=== PATIENT | male | born 1995 | race Caucasian/White ===

== ENCOUNTER 2025-03-10 06:49 | Observation (INO) ==
--- NOTE | 2025-03-10 07:03 | Emergency Department Note ---
History of Present Illness General Chief complaint: Abdominal Pain Stated complaint: ABDOMINAL PAIN Time Seen by Provider: 03/10/25 07:02 History of Present Illness Maximum Pain Intensity: 9 This is a 29-year-old male with history of GERD and asthma that presents to the emergency department via private vehicle with complaints of "left-sided abdominal pain/back pain". The patient notes sudden onset left-sided flank/abdominal pain beginning around 5 AM today. No trauma. No injury. No associated fevers, chills, nausea or vomiting. No history of similar. No history of stones. No history of diverticulitis. Pain minimally better with certain positions, otherwise no aggravating or alleviating factors. Current pain 11/21. Urine is a bit darker this morning compared to baseline. No anticoagulant use. Pain radiates to left testicle as well. Home Medications Medication Instructions Recorded Confirmed Type omeprazole 20 mg capsule,delayed 20 mg PO DAILY 03/10/25 03/10/25 History release topiramate 25 mg tablet 25 mg PO DAILY 03/10/25 03/10/25 History Past Med/Surg History Problem List (Updated 03/10/25 @ 10:24 by Cosme Toledo PA-C) Acute left flank pain (Acute) Hydronephrosis of left kidney (Acute) Calculus of left ureter (Acute) Medical History Asthma Surgical History (Updated 10/19/21 @ 23:04 by QUENTIN Brower) No pertinent past surgical history Social History Smoking Status: Never smoker Preferred Language: Swiss Feels Safe at Home: Yes Review of Systems A total of 10 systems reviewed and were otherwise negative Physical Exam Vital Signs Vital Signs - 24 hr 03/10/25 06:55 03/10/25 07:53 03/10/25 09:00 Temperature 36.0 C L Temperature Source Temporal Artery Scan Pulse Rate 71 84 82 Pulse Rate from SpO2 Sensor 84 Pulse Rhythm Regular Respiratory Rate 20 20 Respiratory Effort / Characteristics Non-Labored Spontaneous Respiratory Depth Normal Respiratory Pattern Regular Blood Pressure 181/81 H 147/81 H Blood Pressure Mean 114 103 Blood Pressure Position Sitting Pulse Oximetry 95 94 Oxygen Delivery Method Room Air Room Air Sepsis Recent Fever Within 48 Hours No Sepsis New/Unexplained Change in Mental Status No Sepsis Action Taken by Nursing No Action Required 03/10/25 10:46 Temperature Temperature Source Pulse Rate 83 Pulse Rate from SpO2 Sensor Pulse Rhythm Respiratory Rate 20 Respiratory Effort / Characteristics Respiratory Depth Respiratory Pattern Blood Pressure 147/81 H Blood Pressure Mean Blood Pressure Position Pulse Oximetry 98 Oxygen Delivery Method Room Air Sepsis Recent Fever Within 48 Hours Sepsis New/Unexplained Change in Mental Status Sepsis Action Taken by Nursing VITAL SIGNS - Vital signs and nursing notes were reviewed. Hypertensive, otherwise stable and afebrile. GENERAL - 29-year-old male appearing his stated age who is in no acute distress. Communicates well with provider and answers questions appropriately. SKIN - Without rashes. No meningeal or petechial rash HEAD - NC/AT. EYES - PERRL with EOMI bilaterally. Sclera anicteric. NECK - No nuchal rigidity. LUNGS - CTA CARDIAC - RRR ABDOMEN - Abdominal contour normal without pulsations or visible masses. BS normoactive all four quadrants. LLQ abd ttp noted. No palpable masses, hepatosplenomegaly, or ascites noted. EXTREMITIES - No clubbing or peripheral cyanosis. +5/5 strength noted in UE/LE bilaterally. NEUROLOGIC - Cranial nerves II through XII grossly intact. PSYCH -alert, oriented and pleasant on exam Course Administered Medications Discontinued Medications Sodium Chloride (Nss) 1,000 mls @ 999 mls/hr IV .Q1H1M ONE Stop: 03/10/25 09:20 Last Infusion: 03/10/25 09:30 Dose: Infused Documented By: Admin: 03/10/25 08:26 Dose: 999 mls/hr Documented By: KALIN Acetaminophen (Ofirmev) 1,000 mg in 100 mls @ 400 mls/hr IV NOW STA Stop: 03/10/25 09:03 Last Infusion: 03/10/25 09:25 Dose: Infused Documented By: Admin: 03/10/25 08:53 Dose: 400 mls/hr Documented By: KALIN Ioversol (Optiray 320 125ml) 120 ml IV ONCE ONE Stop: 03/10/25 08:07 Last Admin: 03/10/25 08:09 Dose: 120 ml Documented By: SHAHZAD Ketorolac Tromethamine (Ketorolac Tromethamine 15 Mg/Ml Vial) 10 mg IV NOW ONE Stop: 03/10/25 08:11 Last Admin: 03/10/25 08:20 Dose: 10 mg Documented By: TDM Morphine Sulfate (Morphine Sulfate 4 Mg/Ml 1 Ml Carp\\Vial) 4 mg IV NOW STA Stop: 03/10/25 07:14 Last Admin: 03/10/25 07:22 Dose: 4 mg Documented By: TDM Morphine Sulfate (Morphine Sulfate 4 Mg/Ml 1 Ml Carp\\Vial) 4 mg IV NOW STA Stop: 03/10/25 08:11 Last Admin: 03/10/25 08:20 Dose: 4 mg Documented By: TDM Ondansetron HCl (Ondansetron Inj 2 Mg/Ml 2 Ml Vial) 4 mg IV NOW STA Stop: 03/10/25 07:14 Last Admin: 03/10/25 07:22 Dose: 4 mg Documented By: TDM Ondansetron HCl (Ondansetron Inj 2 Mg/Ml 2 Ml Vial) 4 mg IV NOW STA Stop: 03/10/25 08:16 Last Admin: 03/10/25 08:20 Dose: 4 mg Documented By: TDM Tamsulosin HCl (Tamsulosin Hcl 0.4 Mg Cap) 0.4 mg PO NOW ONE Stop: 03/10/25 08:50 Last Admin: 03/10/25 08:52 Dose: 0.4 mg Documented By: TDM Medical Decision Making Laboratory Data 03/10/25 07:05 03/10/25 07:05 Lab Results 03/10/25 Range/Units 07:05 WBC 10.26 (4.8-10.8) K/ul RBC 5.37 (4.70-6.10) M/uL Hgb 15.1 (14.0-18.0) g/dL Hct 43.9 (42.0-52.0) % MCV 81.8 (80.0-100.0) fL MCH 28.1 (25.0-34.0) pg MCHC 34.4 (32.0-36.0) g/dL RDW Std Deviation 38.5 (36.4-46.3) fL RDW Coeff of Niranjan 13.2 (11.5-14.5) % Plt Count 274 (130-400) K/uL MPV 8.9 L (9.4-12.4) fL Immature Gran % (Auto) 0.4 % Neut % (Auto) 65.0 % Lymph % (Auto) 23.9 % [place] % (Auto) 8.2 % Eos % (Auto) 1.9 % Baso % (Auto) 0.6 % Neut # (Auto) 6.67 H (1.40-6.50) K/uL Lymph # (Auto) 2.45 (1.20-3.40) K/uL [place] # (Auto) 0.84 H (0.11-0.59) K/uL Eos # (Auto) 0.20 (0.00-0.50) K/uL Baso # (Auto) 0.06 (0.00-0.20) K/uL Immature Gran # (Auto) 0.04 (0.01-0.20) K/uL Sodium 138 (136-145) mmol/L Potassium 3.6 (3.5-5.1) mmol/L Chloride 103 (98-107) mmol/L Carbon Dioxide 26 (21-32) mmol/L Anion Gap 9 (3-11) BUN 17 (6-23) mg/dl Creatinine 0.69 (0.6-1.4) mg/dl Est Cr Clr Drug Dosing 246.4 ml/min eGFR 127.67 BUN/Creatinine Ratio 24.6 H (10-20) Glucose 109 H (70-99(Fasting)) mg/dl Calcium 9.4 (8.6-10.3) mg/dl Total Bilirubin 0.6 (0.2-1.0) mg/dl AST 19 (13-39) U/L ALT 30 (7-52) U/L Alkaline Phosphatase 65 (34-104) U/L Total Protein 7.9 (6.0-8.3) gm/dl Albumin 4.5 (3.4-5.0) gm/dl Globulin 3.4 (2.5-4.0) gm/dl Albumin/Globulin Ratio 1.3 (0.9-2) Urine Color Dark Yellow Urine Appearance Cloudy A (Clear) Urine pH 5.5 (4.5-7.5) Ur Specific [place] 1.037 H (1.000-1.030) Urine Protein 2+ H (Negative) Urine Glucose (UA) Negative (Negative) Urine Ketones Trace H (Negative) Urine Blood 3+ H (Negative) Urine Nitrite Negative (Negative) Urine Bilirubin Negative (Negative) Urine Urobilinogen Negative (Negative) Ur Leukocyte Esterase Trace H (Negative) Urine WBC (Auto) 0-5 (0-5) /hpf Urine RBC (Auto) >20 H (0-2) /hpf U Hyaline Cast (Auto) 0-2 (0-2) /lpf U Epithel Cells (Auto) 3-5 H (0-2) /hpf Urine Bacteria (Auto) None Seen (None Seen) Urine Comment Imaging Data Radiologist's Impression: Abdomen/Pelvis CT 03/10/25 07:[address] WITH IV CONTRAST CT DOSE: 1451.1 mGy.cm HISTORY: L sided abd pain into back region TECHNIQUE: Multiaxial CT images of the abdomen and pelvis were performed following the IV administration of 90 cc of Optiray, A dose lowering technique was utilized adhering to the principles of ALARA. COMPARISON STUDY: None FINDINGS: There is mild fatty liver. There is mild splenomegaly measuring 15 cm. Otherwise the liver, gallbladder, spleen, pancreas, and adrenal glands are unremarkable. No abdominal aortic aneurysm. There is a 6 mm calculus mid left ureter causing minimal left hydronephrosis. No other renal or ureteral calculi seen. No hydronephrosis on the right. Pelvis: Prostate is partially calcified. Urinary bladder is decompressed. Normal appendix. No bowel inflammation or obstruction seen. No free fluid, free air, or abscess. No enlarged adenopathy. Osseous structures: There are mild degenerative changes at the lumbar spine. IMPRESSION: Mid left ureteral calculus causes minimal left hydronephrosis. ACT 112: Negative or not required by law. The above report was generated using voice recognition software. It may contain grammatical, syntax or spelling errors. Electronically signed by: Tucker Enriquez M.D. 03/10/2025 8:40 AM MDM Narrative Patient was seen and evaluated as above in room A09b. Review was performed of nursing notes and vital signs. I did review pertinent previous visits and patient history. After obtaining a thorough history and physical examination the above work up was performed. Patient presents to us today with sudden onset left-sided abdominal pain/back pain. No trauma. No injury. This is associated with darker than usual urine color. Options of care were discussed with the patient. IV access was established. Labs were drawn. There is no leukocytosis or concerning anemia. There is no evidence of kidney or liver failure. Mild hyperglycemia 109. Urinalysis concerning for blood without signs of infection. CT scan results as above. The patient does have a 6 mm left mid ureteral calculus with mild hydro. Patient was medicated here with IV morphine, IV Zofran, IV fluids. Pain initially improved but then returned. IV Toradol, IV Zofran again, IV morphine again, IV acetaminophen, oral tamsulosin. He was reevaluated tremendous improvement. He was observed here and was still doing well. I discussed benefit versus risk of inpatient versus outpatient management. Patient does prefer trialing outpatient management. I will proceed with a course of oral oxycodone, Zofran and Flomax. He will use a urine strainer. He will call urology to arrange follow-up. Certainly he should return here with any worsening and or new/concerning symptoms. While in the department, I personally reevaluated the patient several times. The patient was educated upon management, educated upon todays findings/results, educated upon importance of follow up from today's visit, educated upon symptoms in which to return, had questions answered prior to discharge, verbalized understanding, and while being prepared for discharge, noted pain returned therefore plan will be medical admission. Additional IV analgesics were ordered. Case discussed with the hospitalist service. Please refer to further documentation regarding his stay. 11:05 AMI did call the [facility] to confirm cancellation of the oxycodone, Zofran and Flomax that was sent as the patient initially was prepared for discharge from the ED prior to condition change/ return of pain. In the evaluation and treatment of this patient the following differential diagnoses were entertained: Diverticulitis, kidney stone, testicular torsion, UTI, pyelonephritis, among others. Impression & Plan Calculus of left ureter, Hydronephrosis of left kidney, Acute left flank pain Discharge Plan Visit Data Chief Complaint: Abdominal Pain Stated Complaint: ABDOMINAL PAIN ED Provider: Chris Basurto ED Midlevel Provider: Cosme Toledo Discharge Problem: Calculus of left ureter, Hydronephrosis of left kidney, Acute left flank pain Patient Disposition: Admitted As Inpatient Condition: Good Discharge Instructions Interventions: ED Discharge Assessment Last Done: 03/10/25 10:46 Forms Stand Alone Forms: My [facility], Important Visit Information Prescriptions Prescriptions: No Action topiramate 25 mg tablet 25 mg PO DAILY omeprazole 20 mg capsule,delayed release(/EC) 20 mg PO DAILY Referrals Referrals: Sushant Chavez DO [Physician] - PCP,NO [Primary Care Provider] -
[2025-03-10] MEDS: ONDANSETRON INJ 2 MG/ML 2 ML VIAL IV STA ×2 (07:22→08:20)
[2025-03-10] MEDS: MoRPHine SULFATE 4 MG/ML 1 ML CARP\\VIAL IV STA ×3 (07:22→11:30)
[2025-03-10 07:32] LABS: Hematocrit (blood only) 43.9 % (42.0-52.0); Hemoglobin 15.1 g/dL (14.0-18.0); Immature Granulocytes # (auto) 0.04 K/uL (0.01-0.20); Immature Granulocytes % (auto) 0.4 %; Mean Corpuscular Hemoglobin 28.1 pg (25.0-34.0); Mean Corpuscular Volume 81.8 fL (80.0-100.0); Platelet Count 274 K/uL (130-400); RDW Standard Deviation 38.5 fL (36.4-46.3); Red Blood Count 5.37 M/uL (4.70-6.10); White Blood Count 10.26 K/ul (4.8-10.8)
[2025-03-10 07:52] LABS: Alanine Aminotransferase 30.0 U/L (7-52); Albumin Globulin Ratio 1.3 (0.9-2); Albumin Level 4.5 gm/dl (3.4-5.0); Alkaline Phosphatase 65.0 U/L (34-104); Anion Gap 9.0 (3-11); Bilirubin,Total 0.6 mg/dl (0.2-1.0); Blood Urea Nitrogen 17.0 mg/dl (6-23); Calcium 9.4 mg/dl (8.6-10.3); Carbon Dioxide 26.0 mmol/L (21-32); Chloride 103.0 mmol/L (98-107); Creatinine Clr Calc Pharmacy 246.4 ml/min; Globulin 3.4 gm/dl (2.5-4.0); Glucose 109.0 mg/dl (70-99(Fasting)); Potassium 3.6 mmol/L (3.5-5.1); Sodium 138.0 mmol/L (136-145); Total Protein 7.9 gm/dl (6.0-8.3)
[2025-03-10 08:03] LABS: Appearance Urine Cloudy (Clear); Bacteria Urine Automated None Seen (None Seen); Cast Urine Automated 0-2 /lpf (0-2); Glucose Urine UA Negative (Negative); RBC Urine Automated >20 /hpf (0-2); WBC Urine Automated 0-5 /hpf (0-5)
[2025-03-10] MEDS: OPTIRAY 320 125ml IV ONE (08:09)
[2025-03-10] MEDS: KETOROLAC TROMETHAMINE 15 MG/ML VIAL IV ONE (08:20)
[2025-03-10] MEDS: SODIUM CHLORIDE 0.9% 1,000 ML IV ONE (08:26)
--- NOTE | 2025-03-10 08:42 | CT Scan Report ---
ABDOMEN AND PELVIS CT WITH IV CONTRAST CT DOSE: 1451.1 mGy.cm HISTORY: L sided abd pain into back region TECHNIQUE: Multiaxial CT images of the abdomen and pelvis were performed following the IV administrat ion of 90 cc of Optiray, A dose lowering technique was utilized adhering to the principles of ALARA. COMPARISON STUDY: None FINDINGS: There is mild fatty liver. There is mild splenomegaly measuring 15 cm. Otherwise the liver, gallbladder, spleen, pancreas, and adrenal glands are unremarkable. No abdominal aortic aneurysm. Th ere is a 6 mm calculus mid left ureter causing minimal left hydronephrosis. No other renal or uretera l calculi seen. No hydronephrosis on the right. Pelvis: Prostate is partially calcified. Urinary bladder is decompressed. Normal appendix. No bowel i nflammation or obstruction seen. No free fluid, free air, or abscess. No enlarged adenopathy. Osseous structures: There are mild degenerative changes at the lumbar spine. IMPRESSION: Mid left ureteral calculus causes minimal left hydronephrosis. ACT 112: Negative or not required by law. The above report was generated using voice recognition software. It may contain grammatical, syntax o r spelling errors. Electronically signed by: Tucker Enriquez M.D. 03/10/2025 8:40 AM
[2025-03-10] MEDS: TAMSULOSIN HCL 0.4 MG CAP PO ONE (08:52)
[2025-03-10] MEDS: ACETAMINOPHEN 1,000 MG/100 ML VIAL IV STA (08:53)
--- NOTE | 2025-03-10 11:29 | History & Physical Report ---
Date of Service March 10, 2025 Assessment & Plan (1) Calculus of left ureter: (2) Hydronephrosis of left kidney: (3) Asthma: (4) GERD (gastroesophageal reflux disease): (5) Morbid obesity with BMI of 50.0-59.9, adult: Plan Patient 29-year-old gentleman presents with uncontrollable pain due to left ureteral calculus. Attempted to manage at home, however pain is too severe. Will need hospital level care and intervention. Observed in the MedSurg unit IV fluids Strain urine Pain control Urology consultation Continue outpatient medications as ordered History of Present Illness Chief Complaint: Left flank and back pain Primary Care Provider: NO PCP Patient is a 29-year-old gentleman had acute onset of left flank pain around 5:00 this morning when he got up to go to the bathroom. Pain was so severe he sought medical attention in the emergency room. In the emergency room his a workup revealed a 6 mm left ureteral stone. He was given pain management and fluids. He seemed to improve during his time here in the emergency room. Discussion was had and he chose to try and manage this at home and pursue outpatient urologic evaluation. However as he got up to go home this severe pain reoccurred. Patient was referred to our service for ongoing in-hospital management. Time my evaluation the patient is comfortable again. He denies any fever or chills. No cough or cold symptoms. No chest pain. No shortness of breath. A little bit of nausea with this severe pain. However, he has been eating and drinking well. He states he drinks lots of fluid on a regular basis. No swelling in his hands arms legs or feet. Patient reports never having a history of kidney stones. He has no known family history of kidney stones. Does not smoke or use significant amounts of alcohol. Home Medications Medication Instructions Recorded Confirmed Type omeprazole 20 mg capsule,delayed 20 mg PO DAILY 03/10/25 03/10/25 History release topiramate 25 mg tablet 25 mg PO DAILY 03/10/25 03/10/25 History Past Med/Surg History Problem List (Updated 03/10/25 @ 11:28 by Clifford Bhandari DO) Morbid obesity with BMI of 50.0-59.9, adult GERD (gastroesophageal reflux disease) Acute left flank pain (Acute) Hydronephrosis of left kidney (Acute) Calculus of left ureter (Acute) Medical History Asthma Surgical History (Updated 10/19/21 @ 23:04 by QUENTIN Brower) No pertinent past surgical history Social History Smoking Status: Never smoker Preferred Language: Bruneian Feels Safe at Home: Yes Review of Systems Review of Systems: Pertinent positive and negative review of systems as mentioned in the HPI Physical Exam Physical Exam: Constitutional: Alert, obese, nontoxic HEENT: Mucous membranes moist. Sclera clear Neck: Soft, no adenopathy Lungs: Clear to auscultation, decreased, no wheezes rales or rhonchi CV: S1-S2, regular Abdomen: Soft, nontender, nondistended Extremities: No significant edema Musculoskeletal: No significant joint tenderness Neuro: No focal deficits Psych: Cooperative, normal mood Results & Data Results & Data Vital Signs (Past 12 Hours) Vital Signs Temp Pulse Resp BP Pulse Ox O2 Del Method 03/10/25 10:46 83 20 147/81 H 98 Room Air 03/10/25 09:00 82 20 147/81 H 94 Room Air 03/10/25 07:53 84 03/10/25 06:55 36.0 C L 71 20 181/81 H 95 Room Air Diagnostic Findings Reviewed imaging, laboratory and diagnostic studies. Pertinent findings as below. CBC within normal range Electrolytes within normal range Creatinine 0.69 LFTs within normal range Urinalysis reviewed: 3+ blood, 2+ protein, trace leukocyte esterase, no bacteria seen CT abdomen pelvis report reviewed: 6 mm left ureteral stone with minimal left hydronephrosis Code Status & VTE Plan VTE Prophylaxis Plan VTE Prophylaxis will be ordered: Yes
[2025-03-10] MEDS ORDERED: ONDANSETRON INJ 2 MG/ML 2 ML VIAL IV PRN (12:35)
[2025-03-10] MEDS ORDERED: ALBUTEROL HFA 8 GM INHALER INH PRN (12:35)
[2025-03-10] MEDS ORDERED: ACETAMINOPHEN 325 MG TAB PO PRN (12:35)
[2025-03-10] MEDS ORDERED: ALUMINUM/MAGNESIUM SUSP 30 ML UDC PO PRN (12:35)
[2025-03-10] MEDS ORDERED: MoRPHine SULFATE 10 MG/ML CARP/VIAL IV PRN (12:35)
[2025-03-10 13:15] VITALS: O2SAT 94
--- NOTE | 2025-03-10 13:38 | Urology Consultation ---
Date of Consultation March 10, 2025 Assessment & Plan (1) Hydronephrosis of left kidney: (2) Calculus of left ureter: (3) Acute left flank pain: (4) Morbid obesity with BMI of 50.0-59.9, adult: Plan Patient with left mid ureteral stone found secondary to severe pain and di scomfort. Patient is currently being admitted by the hospitalist team for observation and management of pain control. Patient independently assessed, examined, interviewed, and evaluated. Patient's vitals and labs were all reviewed. Pertinent values in the HPI and plan section. Hemoglobin 15.1. White count 10.26. Creatinine 0.69. Vitals include blood pressure 164/102. Pulse 90 respirations 22 temperature 36.4 and oxygen saturation 94% on room air. Imaging was reviewed interpreted by myself. Left mid ureteral stone with hydronephrosis. Otherwise agree with read. Vitals were reviewed. Discussed findings extensively with patient and family. Reviewed with nurse practitioner as well as consulting physicians/team. Patient is on Topamax. Patient's complicated medical and surgical history was reviewed and summarized above. Patient's surgical, medical, social, and family history were all reviewed with pertinent values as above. Discussed patient's current diagnosis as well as concerns and issues. Reviewed different options moving forward. Discussed potential risks and benefits as well as possible options and concerns. Reviewed potential surgical options and interventions. Discussed potential issues and concerns related to intervention. Risk and benefits were discussed extensively with patient and any available family. Discussed potential risks related to anesthesia. Discussed risks of bleeding infection and injury. Discussed options for conservative measure and maximum expulsion medical therapy and symptom controlled. Discussed ESWL. Discussed Ureteroscopy with extraction and/or laser lithotripsy. Risks and benefits were discussed. Stone free rates were also discussed as well as possibility of multiple procedures. Ureteral stents were discussed as well as post-operative issues and pain management. All questions were answered. Plan for maximal expulsion therapy. Discussed supportive care. Discussed hydration and attempted passage. Reviewed options for pain control including utilization of tamsulosin, pain medication, and aggressive hydration. Reviewed options moving forward. Will plan to observe patient. If changes or major issues developing of severe GLORIA fever or intractable pain or nausea and vomiting we will plan to possibly move forward with intervention. Otherwise we will plan for possible spontaneous passage and observation. No known family history. Patient's complicated medical and surgical history is reviewed and summarized above all imaging was reviewed all labs were reviewed and vitals. Pertinent positive negatives in the HPI or plan section. History of Present Illness Attending Physician: Clifford Bhandari DO History of Present Illness New consultation for patient with stone, discomfort, obstruction, and ill feelings. Patient presented with new stone. Has no known history of stone disease. Found to have left mid ureteral stone. Was admitted to the hospitalist team secondary to pain control and bother. Patient developed sudden onset of pain into flank going down and radiating into groin and back in waves comes and goes. Can be severe at times. Discussed and reviewed patient's family history for any history of stone disease. No known family history. Also, discussed patient's medical surgery history especially related to any history of urinary issues or stone disease. Patient was admitted and is undergoing observation. Home Medications Medication Instructions Recorded Confirmed Type omeprazole 20 mg capsule,delayed 20 mg PO DAILY 03/10/25 03/10/25 History release topiramate 25 mg tablet 25 mg PO DAILY 03/10/25 03/10/25 History Patient History Medical History Asthma Surgical History No pertinent past surgical history Social History Smoking Status: Never smoker Preferred Language: Guinean Feels Safe at Home: Yes Review of Systems Review of Systems: All systems reviewed & are unremarkable except as noted in HPI & below Physical Exam Physical Exam: General: Alert and oriented x 3 in no acute distress. Morbid obesity. Patient is well nourished and well kept. HEENT: Normocephalic Atraumatic. Inspection normal. Cranial Nerves 2-12 Grossly intact. Nares are clear. Neck is supple. Normal inspection of face. Normal inspection of neck. Neurologic: No deficits on inspection. Baseline for motor function and sensory. Psychologic: Normal affect. Respiratory: Nonlabored. No use of accessory muscles. No tachypnea or dyspnea. Cardiovascular: No tachycardia Skin: [place] and Dry. No rashes or visible lesions. Extremities: Moving without issues. No motor deficits on inspection Lymphatics: No edema Abdomen: Soft Non-distended. Obese. No rebound or guarding. Results & Data Vital Signs (Past 12 Hours) Vital Signs Temp Pulse Pulse Resp BP BP BP 03/10/25 13:14 36.4 C L 90 22 164/102 H 159/94 H 03/10/25 12:00 94 H 19 173/93 H 03/10/25 10:46 83 20 147/81 H 03/10/25 09:00 82 20 147/81 H 03/10/25 07:53 84 03/10/25 06:55 36.0 C L 71 20 181/81 H Pulse Ox O2 Del Method 03/10/25 13:14 94 Room Air 03/10/25 12:00 92 Room Air 03/10/25 10:46 98 Room Air 03/10/25 09:00 94 Room Air 03/10/25 07:53 03/10/25 06:55 95 Room Air PG Care Time/CCT Total # of Minutes Spent Total Time Spent with Patient: Total time spent is greater than 50% in coordination of care (as documented) at patient's floor/unit and/or counseling patient: Coding Level of Care Code 86676 OFFICE CONSULT LVL M Diagnoses Hydronephrosis of left kidney N13.30 Calculus of left ureter N20.1 Acute left flank pain R10.A2 Morbid obesity with BMI of 50.0-59.9, adult E66.01; Z68.43
[2025-03-10] MEDS: LACTATED RINGER'S 1,000 ML IV SCH (14:02)
[2025-03-10] MEDS: KETOROLAC 30 MG/ML VIAL IV PRN (14:06)
[2025-03-10] MEDS: ENOXAPARIN INJ 40 MG/0.4 ML SYR SQ SCH (17:07)
[2025-03-11 07:17] VITALS: BP 136/84; PULSE 88; RESP 16; TEMP 98.2
[2025-03-11] MEDS: TAMSULOSIN HCL 0.4 MG CAP PO SCH (08:35)
[2025-03-11] MEDS: FLUTICASONE/VILANTEROL 200/25MCG 14 PUFFS/INHALER INH SCH (08:35)
[2025-03-11] MEDS: TOPIRAMATE 25 MG TAB PO SCH (08:36)
--- NOTE | 2025-03-11 08:50 | Urology Progress Note ---
Date of Service March 11, 2025 Assessment & Plan (1) Hydronephrosis of left kidney: (2) Calculus of left ureter: Plan: Discussed treatment options for renal/ureteral calculi including observation vs ESWL vs ureteroscopy. He feels well this morning. Wants to continue with expulsion therapy. Will check labs this morning to check kidney function. If normal, okay to discharge home from urology standpoint. Follow up in the office as outpatient. Continue tamsulosin. Hydration. Discussed return to ED criteria. Discussed with Dr. Chavez. Admission and Anticipated Discharge Date Admission Date: March 10, 2025 Subjective 29 year old patient with 6mm left ureteral stone. Decided on expulsion therapy for the stone. Doing well this morning. Was ambulatory and no pain. Denies n/v, flank/back/abdominal pain, denies dysuria or hematuria. No other complaints. Physical Exam Physical Exam: alert and oriented. NAD VSS No abdominal or flank tenderness. Results & Data Vital Signs (Past 12 Hours) Vital Signs Temp Pulse Resp BP Pulse Ox O2 Del Method 03/11/25 07:16 36.8 C 88 16 136/84 94 Room Air 03/10/25 22:41 36.5 C 95 H 20 130/73 94 Room Air PG Care Time/CCT Total # of Minutes Spent Total Time Spent with Patient: Total time spent is greater than 50% in coordination of care (as documented) at patient's floor/unit and/or counseling patient: Coding Level of Care Code 27686 SUB INP/OBS CARE 2/35MIN Diagnoses Hydronephrosis of left kidney N13.30 Calculus of left ureter N20.1
[2025-03-11 09:05] LABS: Anion Gap 6.0 (3-11); Blood Urea Nitrogen 12.0 mg/dl (6-23); Calcium 9.1 mg/dl (8.6-10.3); Carbon Dioxide 30.0 mmol/L (21-32); Chloride 104.0 mmol/L (98-107); Creatinine Clr Calc Pharmacy 242.9 ml/min; Glucose 103.0 mg/dl (70-99(Fasting)); Potassium 3.9 mmol/L (3.5-5.1); Sodium 140.0 mmol/L (136-145)
--- NOTE | 2025-03-11 10:01 | Discharge Summary ---
Discharge Summary Date of Service March 11, 2025 Principal Dx & Hospital Course #1 = Principal Diagnosis (1) Calculus of left ureter: (2) Hydronephrosis of left kidney: (3) Asthma: (4) GERD (gastroesophageal reflux disease): (5) Morbid obesity with BMI of 50.0-59.9, adult: Plan Patient 29-year-old gentleman presents with uncontrollable pain due to left ureteral calculus. Attempted to manage at home, however pain was too severe yesterday. urology was consulted, recommended observing him overnight last night. Today, he feels very well and wishes to go home. denies any pain or hematuria. D/w urology [facility], ok for discharge. Urology office will call to schedule an f/u appt within the month. Renal function stable. He will be sent on flomax. advil OTC prn. He was instructed to return to ED if he develops severe unbearable pain or hematuria or inability to void. vitals stable on day of discharge Notes For Next Care Provider Medication Changes From Visit flomax advil prn Admission HPI Per Admitting Provider Patient is a 29-year-old gentleman had acute onset of left flank pain around 5:00 this morning when he got up to go to the bathroom. Pain was so severe he sought medical attention in the emergency room. In the emergency room his a workup revealed a 6 mm left ureteral stone. He was given pain management and fluids. He seemed to improve during his time here in the emergency room. Discussion was had and he chose to try and manage this at home and pursue outpatient urologic evaluation. However as he got up to go home this severe pain reoccurred. Patient was referred to our service for ongoing in-hospital management. Time my evaluation the patient is comfortable again. He denies any fever or chills. No cough or cold symptoms. No chest pain. No shortness of breath. A little bit of nausea with this severe pain. However, he has been e ating and drinking well. He states he drinks lots of fluid on a regular basis. No swelling in his hands arms legs or feet. Patient reports never having a history of kidney stones. He has no known family history of kidney stones. Does not smoke or use significant amounts of alcohol. Discharge Exam Vitals and labs reviewed General: Well appearing, NAD HEENT: EOMI, PERRLA Neck: Supple Cardiac: RRR no rubs gallops or murmurs Lungs: CTA no rhonchi wheezing or rales Abd: S NT ND BS positive : Deffered MSK: Full ROM. No obvious deformities Ext: No Edema cyanosis Skin: Warm, Dry Neuro: AOx3 No focal deficits. Psych: Normal Mood Updated Medication List Medication Instructions Recorded Confirmed Type omeprazole 20 mg capsule,delayed 20 mg PO DAILY 03/10/25 03/10/25 History release topiramate 25 mg tablet 25 mg PO DAILY 03/10/25 03/10/25 History tamsulosin 0.4 mg capsule 0.4 mg PO QAM 30 days #30 caps 03/11/25 Rx Hospital Stay Data Consultations 03/10/25 11:08 ED Decision to Admit Stat 03/10/25 12:35 Consult Urology Routine Diagnostic Imagining Performed 03/10/25 07:13 CT abd pelvis IV con only Stat Pending Results Patient Have Any Pending Studies at Discharge: No Discharge Instructions Given to Patient (Per Discharging Provider) Take advil 600mg three times per day as needed for pain. Dr Melo's urology office should call you to schedule an appt in the next few days. Total Time Total Time Spent Total Time Spent (In Minutes): 38
== END 2025-03-11 12:14 | disposition home or self-care (01) ==
LOC: ED 06:49 → 3N 06:49 → SUATTDRO 11:23 → 3N 12:11